=== PATIENT | female | born 2000 | race Caucasian/White ===

== ENCOUNTER 2020-06-21 11:36 | Emergency (ER) | payer BC ==
[2020-06-21 11:43] VITALS: RESP 18; TEMP 98.3
[2020-06-21] MEDS ORDERED: SODIUM CHLORIDE 0.9% 1,000 ML IV STA (12:07)
--- NOTE | 2020-06-21 12:11 | ED ---
General Adult HPI - General Chief complaint: Chest Pain Stated complaint: chest pain Time Seen by Provider: 06/21/20 11:58 Source: patient, RN notes reviewed Mode of arrival: ambulatory Limitations: no limitations - History of Present Illness Initial comments: Patient's a 19-year-old female presented to the emergency room today with a chief complaint of chest pain 9 days. Patient does admit that she's been expressing some chest discomfort on and off over the last 9 days. She states having 2-3 episodes per day. States usually last about 20 minutes at a time. Patient states that the chest pain goes away and she then feels very tired and lethargic. States sometimes her speech is little slow. She states that she's also had some headaches after the chest pain. States the headaches can last a few hours at a time. She does admit that she saw the family doctor. She states family doctors told her that it would be weeks before results will be back so they decided to come here to the emergency room. Patient also admits that she had some sharp lower abdominal pain last night. She states she started menstrual cycle. She denies any pain currently at this time. Denies any other complaints or symptoms. Patient denies any recent fever, chills, shortness of breath, back pain, abdominal pain, nausea or vomiting, numbness or tingling, visual changes, recent travel, leg pain, or any other complaints. - Related Data Allergies Allergy/AdvReac Type Severity Reaction Status Date / Time No Known Allergies Allergy Verified 06/21/20 11:43 Review of Systems ROS Statement: Those systems with pertinent positive or pertinent negative responses have been documented in the HPI. ROS Other: All systems not noted in ROS Statement are negative. Past Medical History Past Medical History: No Reported History History of Any Multi-Drug Resistant Organisms: None Reported Past Surgical History: Appendectomy Past Psychological History: No Psychological Hx Reported Smoking Status: Never smoker Past Alcohol Use History: None Reported Past Drug Use History: None Reported General Exam - General Exam Comments Initial Comments: General: The patient is awake and alert, in no distress, and does not appear acutely ill. Eye: Pupils are equal, round and reactive to light, extra-ocular movements are intact. No nystagmus. There is normal conjunctiva bilaterally. No signs of icterus. Ears, nose, mouth and throat: There are moist mucous membranes and no oral lesions. Neck: The neck is supple, there is no tenderness or JVD. Cardiovascular: There is a regular rate and rhythm. No murmur, rub or gallop is appreciated. Respiratory: Lungs are clear to auscultation, respirations are non-labored, breath sounds are equal. No wheezes, stridor, rales, or rhonchi. Gastrointestinal: Soft nontender Musculoskeletal: Normal ROM, no tenderness. Strength 5/5. Sensation intact. Neurological: A&O x 3. CN II-XII intact, There are no obvious motor or sensory deficits. Coordination appears grossly intact. Speech is normal. Skin: Skin is warm and dry and no rashes or lesions are noted. Psychiatric: Cooperative, appropriate mood & affect, normal judgment. Limitations: no limitations Course Vital Signs 06/21/20 11:40 Temperature 98.3 F Pulse Rate 83 Respiratory 18 Rate Blood Pressure 115/81 O2 Sat by Pulse 100 Oximetry EKG Findings - EKG Comments: EKG Findings:: EKG performed: 1155. Normal sinus rhythm at 73 bpm. AL interval 124. QRS 76. QT/QTc 340/407. No acute ST changes. Medical Decision Making - Medical Decision Making Patient reexamined at this times resting comfortable. Patient's labs been reviewed. Troponin negative. Labs are unremarkable. Patient's chest x-rays negative for any acute abnormality. Patient's EKG was unremarkable. Patient doing well at this time. Will be discharged home to follow-up family doctor. Advised return if any symptoms increase worsen or for any concerns. Strength testing and is in agreement. - Lab Data Result diagrams: 06/21/20 12:23 06/21/20 12:23 Lab Results 06/21/20 06/21/20 06/21/20 Range/Units 12:23 12:23 12:23 WBC 5.8 (4.0-11.0) k/uL RBC 5.07 (3.80-5.40) m/uL Hgb 15.1 (11.4-16.0) gm/dL Hct 42.7 (34.0-46.0) % MCV 84.3 (80.0-100.0) fL MCH 29.7 (25.0-35.0) pg MCHC 35.3 (31.0-37.0) g/dL RDW 12.7 (11.5-15.5) % Plt Count 192 (150-450) k/uL MPV 9.0 Neutrophils % 56 % Lymphocytes % 31 % Monocytes % 6 % Eosinophils % 4 % Basophils % 1 % Neutrophils # 3.2 (1.3-7.7) k/uL Lymphocytes # 1.8 (1.0-4.8) k/uL Monocytes # 0.4 (0-1.0) k/uL Eosinophils # 0.2 (0-0.7) k/uL Basophils # 0.0 (0-0.2) k/uL Sodium 141 (137-145) mmol/L Potassium 3.9 (3.5-5.1) mmol/L Chloride 106 (98-107) mmol/L Carbon Dioxide 23 (22-30) mmol/L Anion Gap 12 mmol/L BUN 13 (7-17) mg/dL Creatinine 0.78 (0.52-1.04) mg/dL Est GFR (CKD-EPI)AfAm >90 (>60 ml/min/1.73 sqM) Est GFR (CKD-EPI)NonAf >90 (>60 ml/min/1.73 sqM) Glucose 75 (74-99) mg/dL Calcium 9.5 (8.4-10.2) mg/dL Total Bilirubin 0.5 (0.2-1.3) mg/dL AST 21 (14-36) U/L ALT 11 (4-34) U/L Alkaline Phosphatase 79 (38-126) U/L Troponin I <0.012 (0.000-0.034) ng/mL Total Protein 7.7 (6.3-8.2) g/dL Albumin 4.6 (3.5-5.0) g/dL Lipase 138 (23-300) U/L Urine Color Urine Appearance (Clear) Urine pH (5.0-8.0) Ur Specific [place] (1.001-1.035) Urine Protein (Negative) Urine Glucose (UA) (Negative) Urine Ketones (Negative) Urine Blood (Negative) Urine Nitrite (Negative) Urine Bilirubin (Negative) Urine Urobilinogen (<2.0) mg/dL Ur Leukocyte Esterase (Negative) Urine RBC (0-5) /hpf Urine WBC (0-5) /hpf Ur Squamous Epith Cells (0-4) /hpf Urine Bacteria (None) /hpf Urine Mucus (None) /hpf Urine HCG, Qual (Not Detectd) 06/21/20 06/21/20 Range/Units 12:33 12:33 WBC (4.0-11.0) k/uL RBC (3.80-5.40) m/uL Hgb (11.4-16.0) gm/dL Hct (34.0-46.0) % MCV (80.0-100.0) fL MCH (25.0-35.0) pg MCHC (31.0-37.0) g/dL RDW (11.5-15.5) % Plt Count (150-450) k/uL MPV Neutrophils % % Lymphocytes % % Monocytes % % Eosinophils % % Basophils % % Neutrophils # (1.3-7.7) k/uL Lymphocytes # (1.0-4.8) k/uL Monocytes # (0-1.0) k/uL Eosinophils # (0-0.7) k/uL Basophils # (0-0.2) k/uL Sodium (137-145) mmol/L Potassium (3.5-5.1) mmol/L Chloride (98-107) mmol/L Carbon Dioxide (22-30) mmol/L Anion Gap mmol/L BUN (7-17) mg/dL Creatinine (0.52-1.04) mg/dL Est GFR (CKD-EPI)AfAm (>60 ml/min/1.73 sqM) Est GFR (CKD-EPI)NonAf (>60 ml/min/1.73 sqM) Glucose (74-99) mg/dL Calcium (8.4-10.2) mg/dL Total Bilirubin (0.2-1.3) mg/dL AST (14-36) U/L ALT (4-34) U/L Alkaline Phosphatase (38-126) U/L Troponin I (0.000-0.034) ng/mL Total Protein (6.3-8.2) g/dL Albumin (3.5-5.0) g/dL Lipase (23-300) U/L Urine Color Yellow Urine Appearance Clear (Clear) Urine pH 5.5 (5.0-8.0) Ur Specific [place] 1.028 (1.001-1.035) Urine Protein Trace H (Negative) Urine Glucose (UA) Negative (Negative) Urine Ketones Negative (Negative) Urine Blood Moderate H (Negative) Urine Nitrite Negative (Negative) Urine Bilirubin Negative (Negative) Urine Urobilinogen <2.0 (<2.0) mg/dL Ur Leukocyte Esterase Negative (Negative) Urine RBC 2 (0-5) /hpf Urine WBC 7 H (0-5) /hpf Ur Squamous Epith Cells 2 (0-4) /hpf Urine Bacteria Moderate H (None) /hpf Urine Mucus Rare H (None) /hpf Urine HCG, Qual Not Detected (Not Detectd) Disposition Clinical Impression: Chest pain Disposition: HOME SELF-CARE Condition: Good Instructions (If sedation given, give patient instructions): Chest Pain (ED) Additional Instructions: Please use medication as discussed. Please follow-up with family doctor in the next 2 days. Please return to emergency room if the symptoms increase or worsen or for any other concerns. Is patient prescribed a controlled substance at d/c from ED?: No Referrals: Nini Mckeon MD [Primary Care Provider] - 1-2 days Time of Disposition: 13:29
[2020-06-21 12:50] LABS: Basophils % (A) 1 %; Eosinophils # (A) 0.2 k/uL (0-0.7); Eosinophils % (A) 4 %; HCT 42.7 % (34.0-46.0); HGB 15.1 gm/dL (11.4-16.0); Lymphocytes # (A) 1.8 k/uL (1.0-4.8); Lymphocytes % (A) 31 %; MCH 29.7 pg (25.0-35.0); MCHC 35.3 g/dL (31.0-37.0); MCV 84.3 fL (80.0-100.0); Monocytes # (A) 0.4 k/uL (0-1.0); Monocytes % (A) 6 %; Neutrophils # (A) 3.2 k/uL (1.3-7.7); Neutrophils % (A) 56 %; Platelet Count 192 k/uL (150-450); RBC 5.07 m/uL (3.80-5.40); RDW 12.7 % (11.5-15.5); WBC 5.8 k/uL (4.0-11.0)
[2020-06-21 12:58] LABS: ALT 11 U/L (4-34); AST 21 U/L (14-36); African American GFR (CKD) >90 (>60 ml/min/1.73 sqM); Albumin 4.6 g/dL (3.5-5.0); Alkaline Phosphatase 79 U/L (38-126); Anion Gap 12 mmol/L; Blood Urea Nitrogen 13 mg/dL (7-17); Calcium 9.5 mg/dL (8.4-10.2); Carbon Dioxide 23 mmol/L (22-30); Chloride 106 mmol/L (98-107); Glucose 75 mg/dL (74-99); Lipase 138 U/L (23-300); Non-African American GFR(CKD) >90 (>60 ml/min/1.73 sqM); Potassium 3.9 mmol/L (3.5-5.1); Sodium 141 mmol/L (137-145); Total Bilirubin 0.5 mg/dL (0.2-1.3); Total Protein 7.7 g/dL (6.3-8.2)
[2020-06-21 13:08] LABS: Appearance,Urine Clear (Clear); Bacteria,Urine Moderate /hpf; Bilirubin,Urine Negative (Negative); Blood,Urine Moderate (Negative); Color,Urine Yellow; Glucose,Urine (UA) Negative (Negative); Ketones,Urine Negative (Negative); Leukocyte Esterase,Urine Negative (Negative); Mucus,Urine Rare /hpf; Nitrite,Urine Negative (Negative); PH, Urine 5.5 (5.0-8.0); Protein,Urine Trace (Negative); RBC,Urine 2 /hpf (0-5); Specific Gravity,Urine 1.028 (1.001-1.035); Squamous Epithelial Cell,Urine 2 /hpf (0-4); Urobilinogen,Urine <2.0 mg/dL (<2.0); WBC,Urine 7 /hpf (0-5)
--- NOTE | 2020-06-21 13:27 | XR ---
EXAMINATION TYPE: XR chest 2V DATE OF EXAM: 06/21/2020 COMPARISON: NONE HISTORY: Chest pain TECHNIQUE: Frontal and lateral views of the chest are obtained. FINDINGS: There is no focal air space opacity, pleural effusion, or pneumothorax seen. The cardiac silhouette size is within normal limits. The osseous structures are intact. There are overlying jamie ds. IMPRESSION: No acute cardiopulmonary process.
[2020-06-21 13:43] VITALS: PULSE 73
[2020-06-21 13:55] VITALS: BP 101/72
== END 2020-06-21 13:55 | disposition home or self-care (01) ==
LOC: EC 11:36
DX: R07.89 Other chest pain (principal); Z90.49 Acquired absence of other specified parts of digestive tract
CPT/HCPCS: 36415; 71046; 80053; 81001; 81025; 83690; 84484; 85025; 93005; 96360; 99285

== ENCOUNTER 2021-06-21 10:21 | Inpatient (IN) | payer BC ==
[2021-06-21] MEDS ORDERED: OXYTOCIN 30 UNITS/500 ML NS 30 UNIT in SALINE 1 500ML.BAG IV SCH ×2 (11:00→23:25)
[2021-06-21] MEDS ORDERED: METHYLERGONOVINE 0.2 MG/ML 1 ML AMP IM PRN (11:00)
[2021-06-21] MEDS ORDERED: TERBUTALINE 1 MG/ML VIAL SQ PRN (11:00)
[2021-06-21] MEDS ORDERED: OXYTOCIN 10 UNIT/ML 1 ML VIAL IM PRN (11:00)
[2021-06-21] MEDS ORDERED: AMPICILLIN 2,000 MG in SODIUM CHLORIDE 0.9% 100 ML IVPB STA (11:00)
[2021-06-21] MEDS ORDERED: LIDOCAINE 1% (PF) 10 MG/ML (30 ML SDV) SQ PRN (11:00)
[2021-06-21] MEDS ORDERED: CARBOPROST TROMETHAMINE 250 MCG/ML 1 ML AMP IM PRN (11:00)
[2021-06-21] MEDS: LACTATED RINGERS 1,000 ML IV SCH ×4 (11:22→23:00)
[2021-06-21 11:24] LABS: Basophils # (A) 0.1 k/uL (0-0.2); Basophils % (A) 0 %; Eosinophils # (A) 0.3 k/uL (0-0.7); Eosinophils % (A) 3 %; HCT 36.3 % (34.0-46.0); HGB 12.6 gm/dL (11.4-16.0); Lymphocytes # (A) 1.6 k/uL (1.0-4.8); Lymphocytes % (A) 14 %; MCH 30.1 pg (25.0-35.0); MCHC 34.9 g/dL (31.0-37.0); MCV 86.3 fL (80.0-100.0); Mean Platelet Volume 9.5; Monocytes # (A) 0.5 k/uL (0-1.0); Monocytes % (A) 5 %; Neutrophils # (A) 8.6 k/uL (1.3-7.7); Neutrophils % (A) 76 %; Platelet Count 186 k/uL (150-450); RDW 13.9 % (11.5-15.5); WBC 11.3 k/uL (4.0-11.0)
[2021-06-21] MEDS ORDERED: BUTORPHANOL 1 MG/ML 1 ML VIAL IV PRN (12:41)
--- NOTE | 2021-06-21 12:41 | P.HPOB ---
History of Present Illness H&P Date: 06/21/21 Chief Complaint: IUP at 40 6/7 weeks, spontaneous rupture membranes This is a 20-year-old 1 para 0 at 40-6/7 weeks, estimated due date of 06/15. Patient presents with complaints of rupture of membranes around 1:30 AM. Patient states she did have some contractions around midnight. Patient presented to labor and delivery and was noted to be 4 cm, with noted rupture of membranes. Patient has noted good movement, contractions are irregular. Patient is been receiving routine care which is been essentially uncomplicated. On blood work shows a blood type of O-, rubella status is immune, B surface antigen is negative, RPR is nonreactive, HIV is negative, group beta strep cultures were positive. Review of Systems Constitutional: Denies chills, Denies fatigue, Denies fever Ears, nose, mouth and throat: Denies headache Cardiovascular: Reports leg edema Respiratory: Denies dyspnea Gastrointestinal: Denies constipation, Denies diarrhea, Denies nausea, Denies vomiting Genitourinary: Reports Past Medical History Past Medical History: No Reported History History of Any Multi-Drug Resistant Organisms: None Reported Past Surgical History: Appendectomy Past Psychological History: No Psychological Hx Reported Smoking Status: Never smoker Past Alcohol Use History: None Reported Past Drug Use History: None Reported Medications and Allergies Home Medications Medication Instructions Recorded Confirmed Type No Known Home Medications 06/21/21 06/21/21 History Allergies Allergy/AdvReac Type Severity Reaction Status Date / Time No Known Allergies Allergy Verified 06/21/21 10:38 Exam Osteopathic Statement: *. No significant issues noted on an osteopathic structural exam other than those noted in the History and Physical/Consult. Intake and Output 06/20/21 06/21/21 06/21/21 22:59 06:59 14:59 Other: Weight 90.718 kg Targeted physical exam is performed and state in general this a well-nourished well-developed female in no acute distress, breathing is noted to nonlabored, heart has a regular rate and rhythm, abdomen is gravid, heart tones are noted category 1 and she is tommy irregularly, cervix is noted to be 4-5, 90, -2 station. Results Result Diagrams: 06/21/21 11:14 Abnormal Lab Results - Last 24 Hours (Table) 06/21/21 Range/Units 11:14 WBC 11.3 H (4.0-11.0) k/uL Neutrophils # 8.6 H (1.3-7.7) k/uL Assessment and Plan (1) Post-dates Current Visit: Yes Status: Acute Code(s): O48.0 - POST-TERM SNOMED Code(s): 90018089 (2) Positive GBS test Current Visit: Yes Status: Acute Code(s): B95.1 - STREPTOCOCCUS, GROUP B, CAUSING DISEASES [facility] SNOMED Code(s): 633877647 (3) SROM (spontaneous rupture of membranes) Current Visit: Yes Status: Acute Code(s): XQA5317 - SNOMED Code(s): 068731859 Plan: 20yo at 40 6/7 weeks that presents with c/o SROM at 130. IV antibiotics are begun given her GBS positive status, IV Pitocin for augmentation of labor given length of time since rupture of membranes. Patient is counseled on options for analgesia and labor including Stadol and epidural. Patient will consider. Anticipate spontaneous vaginal delivery later today, plan of care is reviewed with patient all questions are answered.
[2021-06-21 14:50] LABS: ALT 11 U/L (4-34); AST 28 U/L (14-36); African American GFR (CKD) >90 (>60 ml/min/1.73 sqM); Blood Urea Nitrogen 6 mg/dL (7-17); LDH 570 U/L (313-618); Non-African American GFR(CKD) >90 (>60 ml/min/1.73 sqM); Uric Acid 4.9 mg/dL (3.7-7.4)
[2021-06-21] MEDS ORDERED: fentaNYL (PF) 50 MCG/ML 5 ML AMP ONE (14:54)
[2021-06-21] MEDS ORDERED: ROPIVACAINE 5MG/ML 20ML VIAL ONE (14:54)
[2021-06-21] MEDS ORDERED: SODIUM CHLORIDE 0.9% 100 ML BAG ONE (14:54)
[2021-06-21] MEDS: AMPICILLIN 1,000 MG in SODIUM CHLORIDE 0.9% 50 ML IVPB SCH ×2 (15:21→18:33)
[2021-06-21 18:14] LABS: Creatinine,Urine Random 47.5 mg/dL; Protein/Creatinine Ratio,Urine 0.442
[2021-06-21] MEDS ORDERED: CITRIC ACID-SODIUM CITRATE 15 ML CUP PO ONE (21:55)
[2021-06-21] MEDS ORDERED: ONDANSETRON 4 MG/2 ML VIAL ONE (22:06)
[2021-06-21] MEDS ORDERED: fentaNYL (PF) 50 MCG/ML 2 ML AMP ONE (22:06)
[2021-06-21] MEDS ORDERED: METHYLERGONOVINE 0.2 MG/ML 1 ML AMP ONE (22:06)
[2021-06-21] MEDS ORDERED: CHLOROPROCAINE 3% 30 MG/ML 20 ML VIAL ONE (22:06)
[2021-06-21] MEDS ORDERED: OXYTOCIN 30 UNITS/500 ML NS BAG IV ONE (22:06)
--- NOTE | 2021-06-21 23:07 | P.OP ---
Date of Procedure: 06/21/21 Preoperative Diagnosis: IUP at 40 and 6/7 weeks, prolonged rupture of membranes, GBS positive, arrest of descent Postoperative Diagnosis: Same Procedure(s) Performed: Primary low transverse section Anesthesia: epidural Surgeon: Mahi Benoit Barn Hand #1: Julio César Barry Estimated Blood Loss (ml): 98 IV fluids (ml): 1,000 Urine output (ml): 200 Pathology: other (Placenta) Condition: stable Disposition: observation Indications for Procedure: 20-year-old 1 para 0 at 40-6/7 weeks that presents to labor and delivery with complaints of spontaneous rupture of membranes at home around 1:30 AM. Patient made slow progress through the day Pitocin augmentation of labor was begun. Patient was known group B strep positive and antibiotics were begun upon presentation to the hospital. Patient progressed to complete began pushing and after an hour no descent of the head was appreciated increase It was noted along with a persistent anterior swollen cervical lip. heart tones were noted to be reassuring throughout pushing, occasional variable with pushing. Patient was counseled on primary secondary to arrest of descent and suspected malposition. Patient states understanding and informed consent is obtained. Operative Findings: Viable male delivered at 2224, weight of 7 lbs. 7 oz., Apgars of 8 and 9 at one and 5 minutes respectively. Significant caput was appreciated, and occiput posterior presentation on delivery. Normal uterus tubes and ovaries were appreciated. Description of Procedure: Patient was taken back to the operating suite where epidural anesthesia found be adequate by the anesthesia department. She was then prepped and draped in normal sterile fashion in the dorsal supine position. A Pfannenstiel skin incision was made the scalpel and carried through the underlying layer of fascia. The fascia was then incised in the midline and the incision was extended laterally. The superior aspect of the fascial incision was then grasped jean-claude clamps, elevated and underlying rectus muscle was dissected off sharply. Attention was then turned the inferior aspect of the fascial incision which was grasped jean-claude clamps, elevated and underlying rectus muscles dissected off sharply once again. The rectus muscles were in the midline and peritoneum was identified and entered. The peritoneal incision was then extended superiorly and inferiorly with good elevation of the bladder. The bladder blade was then inserted into the pelvis. The bladder flap was then created using sharp and blunt dissection. The bladder blade was then reinserted and the pelvis. Hysterotomy incision was made with the scalpel the was encountered low in the pelvis, occiput posterior presentation. Fetus was delivered in the usual fashion. Spontaneous cry was noted at . The cord was doubly clamped and cut and handed to awaiting RN. The placenta was then delivered manually and the uterus was cleared of all clots and debris. The uterus was delivered from the abdomen. The hysterotomy incision was noted to have an extension down the right sidewall. The uterine incision was closed with 0 Vicryl in a running locked fashion. A second imbricating suture was performed. Bleeding was noted on the midportion of the uterus therefore a [id number] suture was used to obtain hemostasis. The pelvis was then irrigated, the uterus was returned to the abdomen. On inspection of the patient's hysterotomy incision a generalized ooze was appreciated, Surgicel powder was placed along hysterotomy incision. Prior to this the gutters were cleared of all clots and debris. The hysterotomy incision was found be hemostatic. The peritoneum was then loosely reapproximated. Rectus muscles were inspected found to be hemostatic. Fascia was then closed 0 Vicryl in a running fashion from one lateral edge the midline and the other lateral edge the midline. The subcu cutaneous tissue was irrigated found be hemostatic. The subcu tissues then closed with 3-0 Vicryl in a running fashion. The skin was then closed with 4-0 Vicryl in a subcuticular fashion. Steri-Strips and sterile dressings were applied. All counts are correct 2 within the procedure. Patient and infant tolerated delivery well.
[2021-06-21] MEDS ORDERED: ONDANSETRON 4 MG/2 ML VIAL IVP PRN (23:25)
[2021-06-21] MEDS ORDERED: ZOLPIDEM 5 MG TAB PO PRN (23:25)
[2021-06-21] MEDS ORDERED: METOCLOPRAMIDE 5 MG/ML 2 ML VIAL IVP PRN (23:25)
[2021-06-21] MEDS ORDERED: diphenhydrAMINE 25 MG CAP PO PRN (23:25)
[2021-06-21] MEDS ORDERED: diphenhydrAMINE 50 MG CAP PO PRN (23:25)
[2021-06-21] MEDS ORDERED: NALOXONE 0.4 MG/ML 1 ML VIAL IV PRN (23:25)
[2021-06-21] MEDS ORDERED: diphenhydrAMINE 50 MG/ML 1 ML VIAL IVP PRN ×2 (23:25)
[2021-06-21] MEDS ORDERED: SIMETHICONE 80 MG CHEWABLE PO PRN (23:25)
[2021-06-22] MEDS: AMPICILLIN 1,000 MG in SODIUM CHLORIDE 0.9% 50 ML IVPB SCH ×2 (00:10→04:23)
[2021-06-22] MEDS: ACETAMINOPHEN TAB 500 MG TAB PO SCH ×4 (01:24→20:23)
[2021-06-22] MEDS: ACETAMINOPHEN IV (For NPO) 1,000 MG in EMPTY BAG 1 BAG IVPB SCH ×2 (01:29→07:23)
[2021-06-22 02:39] LABS: Basophils % (A) 0 %; Eosinophils % (A) 0 %; HCT 37.6 % (34.0-46.0); HGB 12.6 gm/dL (11.4-16.0); Lymphocytes # (A) 1.2 k/uL (1.0-4.8); Lymphocytes % (A) 9 %; MCH 29.7 pg (25.0-35.0); MCHC 33.6 g/dL (31.0-37.0); MCV 88.2 fL (80.0-100.0); Mean Platelet Volume 9.4; Monocytes # (A) 0.5 k/uL (0-1.0); Monocytes % (A) 4 %; Neutrophils # (A) 10.3 k/uL (1.3-7.7); Neutrophils % (A) 85 %; Platelet Count 190 k/uL (150-450); RBC 4.26 m/uL (3.80-5.40); RDW 14.4 % (11.5-15.5); WBC 12.2 k/uL (4.0-11.0)
[2021-06-22] MEDS: IBUPROFEN 600 MG TAB PO SCH ×3 (04:16→17:23)
[2021-06-22] MEDS: IBUPROFEN IV 800 MG in SODIUM CHLORIDE 0.9% 250 ML IV SCH ×2 (04:45→13:18)
[2021-06-22] MEDS: LACTATED RINGERS 1,000 ML IV SCH ×3 (07:22→17:16)
--- NOTE | 2021-06-22 07:49 | P.PN ---
Progress Note - Text Progress Note Date: 06/22/21 Anesthesia Postop day 1 Subjective: Status Post section with Duramorph. Patient seen and examined. Doing well without complaint. VAS 5 out of 10. No nausea vomiting, or pruritus.. Afebrile. Gross lower extremity strength intact. Without apparent anesthetic complications. Objective: Vital signs reviewed Heart: Regular Rate Lungs: Good chest excursion Abdomen: Appears nondistended Assessment: Status post with Duramorph postop day 1 Plan: Continue current care with your medical management. Anticipated and the Duramorph around midnight tonight, you may see increased pain needs around this time.
[2021-06-22] MEDS: SENNOSIDES-DOCUSATE SODIUM 1 EACH TAB PO SCH ×2 (10:13→20:23)
--- NOTE | 2021-06-22 12:55 | P.PNOBGPC ---
Subjective - Subjective Principal diagnosis: Postop day 1 Interval history: Patient is doing well. She is ambulating and voiding without difficulty. She is tolerating clear liquids without nausea or vomiting, her pain is well- controlled with oral ibuprofen/Tylenol. Her lochia is minimal. She is breast- feeding without difficulty. Patient reports: Reports appetite normal, Reports voiding normally, Reports pain well controlled, Reports ambulating normally [place] View: doing well, nursing well Objective - Vital Signs Latest vital signs: Vital Signs Temp Pulse Pulse Resp BP BP Pulse Ox 06/22/21 11:58 98.1 F 70 16 128/76 95 06/22/21 08:00 98.0 F 75 17 131/78 95 06/22/21 04:00 98.0 F 74 14 132/74 96 06/22/21 00:30 98.7 F 74 16 158/73 100 06/22/21 00:15 99.1 F 66 16 160/79 100 06/22/21 00:00 74 16 158/81 100 06/21/21 23:45 99.0 F 63 16 156/88 100 06/21/21 23:30 98.9 F 68 16 151/81 100 06/21/21 23:16 71 18 131/77 100 06/21/21 23:02 97.4 F L 82 18 128/68 99 Intake and Output 06/21/21 06/22/21 06/22/21 22:59 06:59 14:59 Output Total 100 1948 Balance -100 -1948 Output: Urine 100 1850 Estimated Blood Loss 98 Other: Voiding Method Indwelling Catheter # Voids 1 - Exam Extremities: Present: normal, edema Abdomen: Present: normal appearance Incision: Present: normal, dry, intact Uterus: Present: normal, firm - Labs Labs: Abnormal Lab Results - Last 24 Hours (Table) 06/21/21 06/22/21 Range/Units 14:26 02:11 WBC 12.2 H (4.0-11.0) k/uL Neutrophils # 10.3 H (1.3-7.7) k/uL BUN 6 L (7-17) mg/dL Assessment and Plan (1) Post-dates Current Visit: Yes Status: Acute Code(s): O48.0 - POST-TERM SNOMED Code(s): 50146165 (2) Positive GBS test Current Visit: Yes Status: Acute Code(s): B95.1 - STREPTOCOCCUS, GROUP B, CAUSING DISEASES CLASSD [facility] SNOMED Code(s): 540650567 (3) SROM (spontaneous rupture of membranes) Current Visit: Yes Status: Acute Code(s): LBE7079 - SNOMED Code(s): 600502533 (4) S/P section Current Visit: Yes Status: Acute Code(s): Z98.891 - HISTORY OF UTERINE SCAR FROM PREVIOUS SURGERY SNOMED Code(s): 394277852 (5) Arrest of descent, delivered, current hospitalization Current Visit: Yes Status: Acute Code(s): O62.1 - SECONDARY UTERINE INERTIA SNOMED Code(s): 68519169 (6) Occiput posterior presentation of fetus Current Visit: Yes Status: Acute Code(s): O64.0XX0 - OBSTRUCTED LABOR DUE TO INCMPL ROTATION OF HEAD, UNSP SNOMED Code(s): 18232165 Plan: 20-year-old status post primary for arrest of descent. Patient is doing well postoperatively., Plan to continue routine postoperative care with anticipation of discharge home tomorrow.
[2021-06-23] MEDS: IBUPROFEN 600 MG TAB PO SCH ×3 (00:13→09:23)
[2021-06-23] MEDS: IBUPROFEN IV 800 MG in SODIUM CHLORIDE 0.9% 250 ML IV SCH ×3 (02:28→06:33)
[2021-06-23] MEDS: ACETAMINOPHEN TAB 500 MG TAB PO SCH ×2 (06:14→12:09)
--- NOTE | 2021-06-23 08:08 | P.DS ---
Providers Date of admission: 06/21/21 10:53 Expected date of discharge: 06/23/21 Attending physician: Mahi Benoit Primary care physician: Stated None Hospital Course: This is a 20-year-old white female 1 para 0 EDC 2222 at 40-6/7 weeks' gestation who presented in spontaneous labor with amniorrhexis which occurred at home, clear fluid. is remarkable for blood type O-, rubella status immune, group B strep cultures positive. Please see dictated history and physical for details. Antibiotic prophylaxis was given per protocol. Patient progressed through labor to complete dilatation, but wasn't able to descend the head. After prolonged second stage the decision was made to proceed with primary low transverse section. She gave to a liveborn male infant with scores of 8 and 9 at one and 5 minutes respectively. weighed 7 lbs. 7 oz. or 3380 g. Surgery was unremarkable. Please see dictated operative note for details. This when the patient is doing well. Her son has been circumcised. Breast- feeding is going well. I have given her prescription for a double electric breast pump. She is voiding, ambulating, passing flatus without difficulty. Vital signs are stable and she has remained afebrile. Incision is clean and dry, intact, Steri-Strips applied. Pain is well-controlled. Minimal lochia rubra. Patient is judged to be in very good condition for discharge home. She will follow-up with her primary sales representative supervisor in the office in 2 weeks. I have reminded her no intercourse, tampons or douching. Contraceptive options have been reviewed. She will discuss this further with her primary physician in the office. She will call with any fevers shakes or chills, foul smelling or copious lochia, with the passage of large blood clots, with any pain not allevi ated by Advil Motrin or Aleve, or indeed with any concerns. will follow-up with wood borer as per recommendations. Assessment: Doing well second postoperative day Patient Condition at Discharge: Good Plan - Discharge Summary Discharge Rx Participant: No New Discharge Prescriptions: No Action No Known Home Medications Discharge Medication List No Known Home Medications 06/21/21 [History] Follow up Appointment(s)/Referral(s): Mahi Benoit DO [Doctor of Osteopathic Medicine] - 2 Weeks Discharge Disposition: HOME SELF-CARE
[2021-06-23] MEDS: SENNOSIDES-DOCUSATE SODIUM 1 EACH TAB PO SCH (08:23)
[2021-06-23 12:04] VITALS: BP 129/77; PULSE 89; RESP 16; TEMP 97.4
== END 2021-06-23 13:10 | disposition home or self-care (01) | DRG 788 ==
LOC: FBPOP 10:21 → 4FBP 10:53
PROVIDERS: ADMIT Obstetrics & Gynecology Obstetrics; ATTEND Obstetrics & Gynecology Obstetrics
PROC: 10907ZC Drainage of Amniotic Fluid, Therapeutic from Products of Conception, Via Natural or Artificial Opening (ICD-10-PCS; 2021-06-21)
PROC: 3E033VJ Introduction of Other Hormone into Peripheral Vein, Percutaneous Approach (ICD-10-PCS; 2021-06-21)
PROC: 10D00Z1 Extraction of Products of Conception, Low, Open Approach (ICD-10-PCS; principal; 2021-06-21 22:37)
DX: O32.4XX0 Maternal care for high head at term, not applicable or unspecified (principal); O26.893 Other specified pregnancy related conditions, third trimester; O63.1 Prolonged second stage (of labor); O48.0 Post-term pregnancy; O99.824 Streptococcus B carrier state complicating childbirth; Z3A.40 40 weeks gestation of pregnancy; Z37.0 Single live birth; Z67.41 Type O blood, Rh negative
CPT/HCPCS: 59025; 82565; 82570; 83615; 84112; 84156; 84450; 84460; 84520; 84550; 85025; 86850; 86900; 86901; 88307; 99213

== ENCOUNTER 2021-06-29 19:17 | Emergency (ER) | payer BC ==
[2021-06-29] MEDS ORDERED: SODIUM CHLORIDE 0.9% 1,000 ML IV STA (20:38)
--- NOTE | 2021-06-29 20:51 | ED ---
General Adult HPI - General Chief complaint: Recheck/Abnormal Lab/Rx Stated complaint: incision opening Time Seen by Provider: 06/29/21 20:28 Source: patient, RN notes reviewed Mode of arrival: ambulatory Limitations: no limitations - History of Present Illness Initial comments: This is a pleasant 20-year-old female who is 6 days . Patient had a done [address] Benoit. Patient sent in for wound dehiscence. Patient is getting some drainage from the right side of the wound. Patient states she feels well otherwise. No fever or chills. No nausea or vomiting. No headache, no fever or chills, no changes in vision or hearing, no sore throat or difficulty with speech, no neck pain, no chest pain or shortness of breath, no abdominal pain, no nausea or vomiting, no changes in urination or bowel movements, no numbness or tingling, no extremity pain, no skin rashes or lesions. - Related Data Previous Rx's Medication Instructions Recorded Amoxicillin/Potassium Clav 1 each PO Q12HR #20 tab 06/29/21 [Augmentin 875-125 Tablet] Allergies Allergy/AdvReac Type Severity Reaction Status Date / Time No Known Allergies Allergy Verified 06/29/21 19:22 Review of Systems ROS Statement: Those systems with pertinent positive or pertinent negative responses have been documented in the HPI. ROS Other: All systems not noted in ROS Statement are negative. Past Medical History Past Medical History: No Reported History Additional Past Medical History / Comment(s): tachycardia: was taking metoprolol History of Any Multi-Drug Resistant Organisms: None Reported Past Surgical History: Appendectomy, Section Past Anesthesia/Blood Transfusion Reactions: No Reported Reaction Past Psychological History: No Psychological Hx Reported Smoking Status: Never smoker Past Alcohol Use History: None Reported Past Drug Use History: None Reported - Past Family History Father Family Medical History: Diabetes Mellitus Sister(s) Family Medical History: Asthma, Cancer General Exam - General Exam Comments Initial Comments: Patient does not appear to be ill or toxic. Vital signs reviewed Limitations: no limitations General appearance: alert, in no apparent distress Head exam: Present: atraumatic, normocephalic, normal inspection Eye exam: Present: normal appearance, PERRL, EOMI. Absent: scleral icterus, conjunctival injection, periorbital swelling ENT exam: Present: normal exam, mucous membranes moist Neck exam: Present: normal inspection. Absent: tenderness, meningismus, lymphad enopathy Respiratory exam: Present: normal lung sounds bilaterally. Absent: respiratory distress, wheezes, rales, rhonchi, stridor Cardiovascular Exam: Present: regular rate, normal rhythm, normal heart sounds. Absent: systolic murmur, diastolic murmur, rubs, gallop, clicks GI/Abdominal exam: Present: soft, tenderness (Mild tenderness over the Pfannenstiel incision. No tenderness elsewhere. There is minimal erythema a djacent to the incision itself. Some evidence of serosanguineous/purulent drainage from the right side of the wound with minimal dehiscence.), normal bowel sounds. Absent: distended, guarding, rebound, rigid Extremities exam: Present: normal inspection, full ROM, normal capillary refill. Absent: tenderness, pedal edema, joint swelling, calf tenderness Back exam: Present: normal inspection Neurological exam: Present: alert, oriented X3, CN II-XII intact Psychiatric exam: Present: normal affect, normal mood Skin exam: Present: warm, dry, intact, erythema (See above). Absent: rash, cyanosis, diaphoretic, urticaria, vesicles Course Vital Signs 06/29/21 19:22 Temperature 98.2 F Pulse Rate 99 Respiratory 20 Rate Blood Pressure 143/85 O2 Sat by Pulse 98 Oximetry - Reevaluation(s) Reevaluation #1: 06/29/21 22:19 Medical record is reviewed Symptoms are improved here in the emergency department Patient is informed of results and questions answered Patient in no distress Procedures - Procedures Initial comment: Wound was cleansed. 1/4 inch out of her packed gauze used to pack the area of dehiscence. Approximately 12 cm of packing was used. Medical Decision Making - Medical Decision Making Call placed for the speeder hand at 10:19 PM Case was discussed in detail with Dr. Chamberlain the speeder hand maintenance construction helper. Patient will be set up with Dr. Benoit tomorrow. Instructions the dehisced area was waked with iodoform packing gauze. Approximately 12 cm packing gauze was used. Patient placed on Augmentin. She is to call 8 AM in the morning for follow-up. Patient was told to return to the ER for any signs or symptoms worsen. Told to return immediately if any other problems arise. All questions answered. Treatment plan discussed. Patient in agreement Every effort has been made to ensure accuracy of this dictation. However, due to the limitations of electronic medical records and dictation devices, errors in charting still occur. - Lab Data Result diagrams: 06/29/21 20:53 06/29/21 20:53 Lab Results 06/29/21 06/29/21 06/29/21 Range/Units 20:53 20:53 20:53 WBC 14.2 H (4.0-11.0) k/uL RBC 3.74 L (3.80-5.40) m/uL Hgb 11.1 L (11.4-16.0) gm/dL Hct 32.6 L (34.0-46.0) % MCV 87.2 (80.0-100.0) fL MCH 29.8 (25.0-35.0) pg MCHC 34.2 (31.0-37.0) g/dL RDW 13.2 (11.5-15.5) % Plt Count 327 (150-450) k/uL MPV 8.7 Neutrophils % 77 % Lymphocytes % 15 % Monocytes % 4 % Eosinophils % 3 % Basophils % 0 % Neutrophils # 10.9 H (1.3-7.7) k/uL Lymphocytes # 2.2 (1.0-4.8) k/uL Monocytes # 0.6 (0-1.0) k/uL Eosinophils # 0.4 (0-0.7) k/uL Basophils # 0.1 (0-0.2) k/uL Poikilocytosis Slight Sodium 140 (137-145) mmol/L Potassium 2.8 L (3.5-5.1) mmol/L Chloride 108 H (98-107) mmol/L Carbon Dioxide 23 (22-30) mmol/L Anion Gap 9 mmol/L BUN 15 (7-17) mg/dL Creatinine 0.78 (0.52-1.04) mg/dL Est GFR (CKD-EPI)AfAm >90 (>60 ml/min/1.73 sqM) Est GFR (CKD-EPI)NonAf >90 (>60 ml/min/1.73 sqM) Glucose 107 H (74-99) mg/dL Plasma Lactic Acid Jairo 0.8 (0.7-2.0) mmol/L Calcium 8.6 (8.4-10.2) mg/dL Total Bilirubin 0.5 (0.2-1.3) mg/dL AST 16 (14-36) U/L ALT 8 (4-34) U/L Alkaline Phosphatase 177 H (38-126) U/L Total Protein 6.1 L (6.3-8.2) g/dL Albumin 3.1 L (3.5-5.0) g/dL Disposition Clinical Impression: Wound dehiscence, Disposition: HOME SELF-CARE Condition: Stable Additional Instructions: Follow-up with your regular physician as directed. Return to the ER immediately if any symptoms worsen, new symptoms arise, or any other problems develop. Call tomorrow morning to Dr. Benoit's office for follow-up plan. Call at 8 AM. I did speak with the on-call speeder hand, Dr. Chamberlain here, they should n otice your going to call. Take antibiotics as directed. Is patient prescribed a controlled substance at d/c from ED?: No Referrals: None,Stated [Primary Care Provider] - 1-2 days
[2021-06-29 21:02] LABS: Basophils # (A) 0.1 k/uL (0-0.2); Basophils % (A) 0 %; Eosinophils # (A) 0.4 k/uL (0-0.7); Eosinophils % (A) 3 %; HCT 32.6 % (34.0-46.0); HGB 11.1 gm/dL (11.4-16.0); Lymphocytes # (A) 2.2 k/uL (1.0-4.8); Lymphocytes % (A) 15 %; MCH 29.8 pg (25.0-35.0); MCHC 34.2 g/dL (31.0-37.0); MCV 87.2 fL (80.0-100.0); Mean Platelet Volume 8.7; Monocytes # (A) 0.6 k/uL (0-1.0); Monocytes % (A) 4 %; Neutrophils # (A) 10.9 k/uL (1.3-7.7); Neutrophils % (A) 77 %; Platelet Count 327 k/uL (150-450); Poikilocytosis Slight; RBC 3.74 m/uL (3.80-5.40); RDW 13.2 % (11.5-15.5); WBC 14.2 k/uL (4.0-11.0)
[2021-06-29 21:12] LABS: ALT 8 U/L (4-34); AST 16 U/L (14-36); African American GFR (CKD) >90 (>60 ml/min/1.73 sqM); Albumin 3.1 g/dL (3.5-5.0); Alkaline Phosphatase 177 U/L (38-126); Anion Gap 9 mmol/L; Blood Urea Nitrogen 15 mg/dL (7-17); Calcium 8.6 mg/dL (8.4-10.2); Carbon Dioxide 23 mmol/L (22-30); Chloride 108 mmol/L (98-107); Glucose 107 mg/dL (74-99); Non-African American GFR(CKD) >90 (>60 ml/min/1.73 sqM); Potassium 2.8 mmol/L (3.5-5.1); Sodium 140 mmol/L (137-145); Total Bilirubin 0.5 mg/dL (0.2-1.3); Total Protein 6.1 g/dL (6.3-8.2)
--- NOTE | 2021-06-29 21:40 | US ---
EXAMINATION TYPE: US gallbladder DATE OF EXAM: 06/29/2021 COMPARISON: NONE CLINICAL HISTORY: Upper abdominal pain. EXAM MEASUREMENTS: Liver Length: 18.2 cm Gallbladder Wall: 0.24 cm CBD: 0.38 cm Right Kidney: 12.2 x 4.0 x 5.0 cm Pancreas: Tail obscured by overlying bowel gas Liver: Slightly enlarged Gallbladder: wnl Evidence for sonographic Adhikari's sign: No CBD: wnl Right Kidney: No hydronephrosis or masses seen IMPRESSION: No gallstones or dilated ducts. negative exam.
--- NOTE | 2021-06-29 21:42 | US ---
EXAMINATION TYPE: US abdomen limited DATE OF EXAM: 06/29/2021 COMPARISON: NONE CLINICAL HISTORY: Lower abdominal wall/pelvic area. Patient presents with bleeding at incis ion. Patient had 06/21/21 Scanned at area of , midline. Uterus was noted as well as indistinct hypoechoic area anterio r to uterus, somewhat superficially. Area could possibly represent fluid collection measured at 4.8 c m. Difficult exam as patient was unable to tolerate any pressure from the transducer. IMPRESSION: 5 x 2 cm hypoechoic area at the surgery site could be a seroma or hematoma or abscess.
[2021-06-29] MEDS ORDERED: TOPICAL SKIN ADHESIVE 1 EACH AMP TOPICAL ONE (22:15)
[2021-06-29] MEDS ORDERED: PIPERACILLIN-TAZOBACTAM 3.375 GM in SODIUM CHLORIDE 0.9% 100 ML IVPB ONE (22:30)
[2021-06-29 22:48] VITALS: BP 153/89; PULSE 83; RESP 18; TEMP 98.4
== END 2021-06-29 22:53 | disposition home or self-care (01) ==
LOC: EC 19:17
DX: O90.0 Disruption of cesarean delivery wound (principal); Z90.49 Acquired absence of other specified parts of digestive tract
CPT/HCPCS: 99284; 96365; 96361; 36415; 93005; 80053; 83605; 85025; 87040; 87070; 87205; 87075; 76705 ×2; J2543

== ENCOUNTER → 2023-05-04 | Outpatient (CLI) | payer BC ==
--- NOTE | 2023-05-04 10:55 | USB ---
Reason for Exam: Clinical finding. Technique: Method: Whole Breast Handheld. Findings: The whole breast of both breasts, the axilla of both breasts and the retroareolar of both breasts were scanned. A complete US of all four quadrants of the bilateral breasts, axilla, and retro-areolar region were reviewed. Right: No solid or cystic masses are identified. No axillary lymphadenopathy or duct ectasia. Left: There is a circumscribed oval 6 x 5 x 4 mm hypoechoic lesion at the 10:00 position, 5 cm from the nipple. Some faint posterior through transmission is present. A debris-filled cyst is suspected. Reassess at a 6 month follow-up. No other solid or cystic lesion or axillary lymphadenopathy. Overall Assessment: Probably benign, BI-RAD 3 Management: Diagnostic Breast Ultrasound of the left breast in 6 months. Targeted to the 10:00 position for a suspected 6 mm debris-filled cyst. Further clinical management of patient's inferior left breast pain. Patient should continue monthly self breast exams. Results were given to the patient verbally at the time of exam. Electronically signed and approved by: Zonia Reis M.D. Radiologist
== END | disposition home or self-care (01) ==
LOC: RADUSWWP 10:04
PROVIDERS: ATTEND Internal Medicine Geriatric Medicine
DX: N64.4 Mastodynia (principal); N64.89 Other specified disorders of breast

== ENCOUNTER → 2023-08-24 | Outpatient (CLI) | payer BC ==
[2023-08-24 11:33] VITALS: BP 111/71; PULSE 73; RESP 16; TEMP 98.1
--- NOTE | 2023-08-24 11:37 | P.GSCN ---
History of Present Illness Consult date: 08/24/23 Reason for Consult: breast pain Requesting physician: Juan Carlos Ordonez History of present illness: Anahy is a 22 year old seen in consultation for DR. Ordonez regarding breast pain. She had a bilateral breast ultrasound on 05-04-23 which shoed a probable debri filled cyst in the left breast. This was BIRAD 3 and repeat in 6 months recommended. She isnot complaining of any new lumps masses or nodules of concern in either breast. She is not complaining of any nipple discharge or skin changes. She has some intermittent pain in the lower inner aspect of the left breast which she believes is related to cystic changes. She has not had any surgery in her breast. She is not complaining of any recent trauma or infection in the breast. The patient states that the pain is sharp when it occurs that is fleeting in nature. It does not interfere with her daily living. There is nothing that she knows that makes it better or worse. Her periods are regular. Her pain is not related to her periods. BCP: none hormone: none Caffeine: 1 can pop/day Nicotine: Negative Chocolate: Negative control pills: Negative Hormones: Negative Family history: sister: thyroid cancer Hormonal History: menarche: 11 , age at 20, breast fed: no periods regular, discomfort does not change with recent relationship to her menstrual cycle Surgical History: wisdom teeth appy Medical History: none Social History: Nicotine: Negative Alcohol: Negative Drugs: Negative Review of Systems - Constitutional Denies fever, Denies weight loss - EENT Eyes: denies blurred vision Ears: deny: decreased hearing, tinnitus Ears, nose, mouth and throat: Denies dysphagia - Breasts bilateral: as per HPI - Cardiovascular Denies chest pain, Denies shortness of breath - Respiratory Denies cough, Denies 7 - Gastrointestinal Reports as per HPI - Genitourinary Genitourinary: Reports as per HPI Menstruation: Reports period normal - Musculoskeletal Reports as per HPI - Integumentary Denies rash, Denies unusual bruising - Neurological Denies headaches, Denies syncope - Psychiatric Reports as per HPI - Hematologic/Lymphatic Denies easy bleeding, Denies easy bruising Past Medical History Past Medical History: No Reported History Additional Past Medical History / Comment(s): tachycardia: was taking metoprolol History of Any Multi-Drug Resistant Organisms: None Reported Past Surgical History: Appendectomy, Section Past Anesthesia/Blood Transfusion Reactions: No Reported Reaction - Sexual Orientation/Gender Identity What was your sex assigned at ?: Female Preferred Pronoun: She/Her/Hers Past Psychological History: No Psychological Hx Reported Smoking Status: Never smoker Past Alcohol Use History: None Reported Past Drug Use History: None Reported - Past Family History Father Family Medical History: Diabetes Mellitus Sister(s) Family Medical History: Asthma, Cancer Medications and Allergies Allergies Allergy/AdvReac Type Severity Reaction Status Date / Time No Known Allergies Allergy Verified 08/24/23 10:58 Surgical - Exam Vital Signs Temp Pulse Resp BP Pulse Ox 98.1 F 73 16 111/71 97 08/24/23 11:00 08/24/23 11:00 08/24/23 11:00 08/24/23 11:00 08/24/23 11:00 - General no distress - Eyes normal ocular movement - ENT no hearing loss - Neck trachea midline - Respiratory normal respiratory effort - Cardiovascular Rhythm: regular Heart Sounds: normal: S1, S2 - Abdomen Abdomen: soft, non tender, no guarding, no rigid, no rebound - Integumentary normal turgor - Neurologic no disoriented, no combative - Musculoskeletal normal gait - Psychiatric oriented to time, oriented to person, oriented to place, speech is normal, memory intact Breast Exam: BRA: 34D inspection: Bilateral grade 2 ptosis Palpation: Right breast: Multi positional exam fibrocystic changes no dominant masses or nodules of concern Right axilla: No adenopathy of concern Left breast: Multi positional exam fibrocystic changes no dominant masses or nodules of concern, particular attention to the area of tenderness did not reveal any specific lesion or mass Left axilla: No adenopathy of concern Results Of bilateral breast ultrasound from 05-04-2023 Assessment and Plan Assessment: Impression: Fibrocystic breast changes 6 x 5 mm hypoechoic lesion 10 o'clock position left breast 6-month follow-up recommended Plan: 6-month repeat left breast ultrasound with repeat examination at that time; October 2023 Lifestyle modifications discussed with the patient such as avoiding caffeine or primrose oil Patient is seen with her Both understand nothing on today's exam which would warrant interventional biopsy on physical exam or radiographically dealing with breast pain book information given to the patient CC: Dr. Ordonez
== END ==
LOC: WWCWWP 10:49
PROVIDERS: ATTEND Surgery
DX: N60.11 Diffuse cystic mastopathy of right breast (principal); N60.12 Diffuse cystic mastopathy of left breast; L98.8 Other specified disorders of the skin and subcutaneous tissue; N64.4 Mastodynia

== ENCOUNTER → 2023-11-05 | Outpatient (CLI) | payer BC ==
--- NOTE | 2023-11-05 10:36 | USB ---
Reason for Exam: Follow-up at short interval from prior study. Technique: Method: Targeted. Prior Study Comparison: 05/04/2023 Bilateral US breast BILAT, PH. Findings: The lower inner quadrant of the left breast, the axilla of the left breast and the retroareolar of the left breast were scanned. Well-circumscribed hypoechoic lesion with internal echoes at the left 1:00 position 5 cm from the nipple measures 6 x 4 mm versus 6 x 4 mm previously and likely reflects a small cyst with internal debris. Continued follow-up is advised.. Overall Assessment: Probably benign, BI-RAD 3 Management: Diagnostic Breast Ultrasound of the left breast in 6 months. A clinical breast exam by your physician is recommended on an annual basis and results should be correlated with mammographic findings. This exam should not preclude additional follow-up of suspicious palpable abnormalities. Results were given to the patient verbally at the time of exam. Electronically signed and approved by: Valente Aguilera M.D. Radiologis
== END | disposition home or self-care (01) ==
LOC: RADUSWWP 09:33
PROVIDERS: ATTEND Surgery
DX: N63.20 Unspecified lump in the left breast, unspecified quadrant (principal)

== ENCOUNTER → 2023-11-23 | Outpatient (CLI) | payer BC ==
[2023-11-23 10:59] VITALS: BP 99/61; PULSE 68; RESP 16; TEMP 98.4
--- NOTE | 2023-11-23 11:21 | P.PN ---
Subjective Progress Note Date: 11/23/23 Principal diagnosis: fibrocystic breast 11-23-23 Reason for Consult: breast pain Requesting physician: Juan Carlos Ordonez History of present illness: Anahy is a 22 year old seen in consultation on 08-24-[address] Ordonez regarding breast pain. She had a bilateral breast ultrasound on 05-04-23 which showed a probable debri filled cyst in the left breast. This was BIRAD 3 and repeat in 6 months recommended. She was not complaining of any new lumps masses or nodules of concern in either breast. She was not complaining of any nipple discharge or skin changes. She had some intermittent pain in the lower inner aspect of the left breast which she believed was related to cystic changes. She had not had any surgery in her breast. She was not complaining of any recent trauma or infection in the breast. The patient stated that the pain wa sharp when it occured that is fleeting in nature. It does not interfere with her daily living. There is nothing that she knows that makes it better or worse. Her periods are regular. Her pain is not related to her periods. She states the breast pain at this time has resolved. She did not do any lifestyle modifications. She is not complaining of any new lumps masses or nodules of concern in either breast. BCP: none hormone: none Caffeine: 1 can pop/day Nicotine: Negative Chocolate: Negative control pills: Negative Hormones: Negative Family history: sister: thyroid cancer Hormonal History: menarche: 11 , age at 20, breast fed: no periods regular, discomfort does not change with recent relationship to her menstrual cycle Surgical History: wisdom teeth appy Medical History: none Social History: Nicotine: Negative Alcohol: Negative Drugs: Negative Review of Systems - Constitutional Denies fever, Denies weight loss - EENT Eyes: denies blurred vision Ears: deny: decreased hearing, tinnitus Ears, nose, mouth and throat: Denies dysphagia - Breasts bilateral: as per HPI - Cardiovascular Denies chest pain, Denies shortness of breath - Respiratory Denies cough - Gastrointestinal Reports as per HPI - Genitourinary Genitourinary: Reports as per HPI Menstruation: Reports period normal - Musculoskeletal Reports as per HPI - Integumentary Denies rash, Denies unusual bruising - Neurological Denies headaches, Denies syncope - Psychiatric Reports as per HPI - Hematologic/Lymphatic Denies easy bleeding, Denies easy bruising Past Medical History Past Medical History: No Reported History Additional Past Medical History / Comment(s): tachycardia: was taking metoprolol History of Any Multi-Drug Resistant Organisms: None Reported Past Surgical History: Appendectomy, Section Past Anesthesia/Blood Transfusion Reactions: No Reported Reaction - Sexual Orientation/Gender Identity What was your sex assigned at ?: Female Preferred Pronoun: She/Her/Hers Past Psychological History: No Psychological Hx Reported Smoking Status: Never smoker Past Alcohol Use History: None Reported Past Drug Use History: None Reported - Past Family History Father Family Medical History: Diabetes Mellitus Sister(s) Family Medical History: Asthma, Cancer Medications and Allergies Allergies Allergy/AdvReac Type Severity Reaction Status Date / Time No Known Allergies Allergy Verified 08/24/23 10:58 Objective - Vital Signs Vital signs: Vital Signs Temp 98.4 F 11/23/23 10:56 Pulse 68 11/23/23 10:56 Resp 16 11/23/23 10:56 BP 99/61 11/23/23 10:56 Pulse Ox 99 11/23/23 10:56 FiO2 Intake & Output 11/22/23 11/23/23 11/23/23 18:59 06:59 18:59 Weight 72.575 kg - Constitutional General appearance: Present: cooperative - EENT Eyes: Present: EOMI ENT: Present: hearing grossly normal - Neck Neck: Present: normal ROM - Respiratory Respiratory: bilateral: CTA - Cardiovascular Rhythm: regular Heart sounds: normal: S1, S2 - Integumentary Integumentary: Present: normal turgor - Musculoskeletal Musculoskeletal: Present: gait normal - Psychiatric Psychiatric: Present: A&O x's 3, appropriate affect, intact judgment & insight - Additional findings Additional findings: Breast Exam: BRA: 34D inspection: Bilateral grade 2 ptosis Palpation: Right breast: Multi positional exam fibrocystic changes no dominant masses or n odules of concern Right axilla: No adenopathy of concern Left breast: Multi positional exam fibrocystic changes no dominant masses or nodules of concern Left axilla: No adenopathy of concern Assessment and Plan Assessment: Impression: Fibrocystic breast changes left breast ultrasound 11-05-23 6 by 4 cm lesion stable 6 months follow up recommended Plan: 6-month repeat left breast ultrasound with repeat examination at that time; April 2024 nothing on today's exam which would warrant interventional biopsy on physical exam or radiographically dealing with breast pain book information given to the patient on her last visit CC: Dr. Ordonez
== END ==
LOC: WWCWWP 10:08
PROVIDERS: ATTEND Surgery
DX: N60.12 Diffuse cystic mastopathy of left breast (principal); N60.11 Diffuse cystic mastopathy of right breast; N64.4 Mastodynia; C44.591 Other specified malignant neoplasm of skin of breast

== ENCOUNTER → 2024-05-29 | Outpatient (CLI) | payer BC, OTHER ==
--- NOTE | 2024-05-29 09:54 | USB ---
Reason for Exam: Follow-up at short interval from prior study. Technique: Method: Targeted. Findings: The upper inner quadrant of the left breast, the axilla of the left breast and the retroareolar of the left breast were scanned. Targeted ultrasound redemonstrates oval anechoic circumscribed lesion measuring 7 x 4 x 7 mm at 10:00 position 5 cm distance from nipple. Lesion grossly stable accounting for technical differences from prior studies. Suspect simple thin-walled cyst. Overall Assessment: Benign, BI-RAD 2 Management: Screening Mammogram of both breasts at age 40. Patient instructed to return for workup if lesion comes palpable again and/or becomes painful again. A clinical breast exam by your physician is recommended on an annual basis and results should be correlated with mammographic findings. This exam should not preclude additional follow-up of suspicious palpable abnormalities. Results were given to the patient verbally at the time of exam. [facility], , 05/29/2024 9:50 AM. Electronically signed and approved by: Zhen Wolf M.D.
== END | disposition home or self-care (01) ==
LOC: RADUSWWP 09:26
PROVIDERS: ATTEND Surgery
DX: N64.4 Mastodynia (principal)